=== PATIENT | male | born 1990 | race Caucasian/White ===

== ENCOUNTER 2019-08-17 18:57 | Emergency (ER) | payer BC ==
--- NOTE | 2019-08-17 19:19 | PDOC ---
Rapid Medical Evaluation Time Seen by Provider: 08/17/19 19:17 Medical Evaluation: 08/17/19 19:19 I have performed a brief in-person evaluation of this patient. The patient presents with a chief complaint of: exertional headache Pertinent physical exam findings:stable and in NAD, non-focal I have ordered the following:labs The patient will proceed to the ED for further evaluation.
[2019-08-17 19:21] VITALS: TEMP 98.4; BMI 38.9
--- NOTE | 2019-08-17 20:40 | PDOC ---
History of Present Illness - General Chief Complaint: Headache Stated Complaint: HEADCHE Time Seen by Provider: 08/17/19 19:17 - History of Present Illness Initial Comments: Mr. Adamson is a 29 y/o male with PMH significant for weather induced asthma, presenting with bitemporal headache for the past week. Reports he was doing push -ups when the headache started. Pain does not radiate anywhere else. Denies neck pain. Denies chest pain or shortness of breath. Denies dizziness, lightheadedness, or vertigo. Reports that he has tried Tylenol with no improvement. He has had previous headaches in the past, less severe, around once a month, which improve with Tylenol. No neck manipulation or chiropractor visits. SurgHx: right knee surgery Past History - Past Medical History Allergies/Adverse Reactions: Allergies Allergy/AdvReac Type Severity Reaction Status Date / Time Penicillins Allergy Mild Hives Verified 08/17/19 19:21 Home Medications: Ambulatory Orders Bupropion HCl [Wellbutrin Sr] 150 mg PO DAILY 08/17/19 Fluticasone/Salmeterol [Advair 250-50 Diskus] 1 each IH DAILY 08/17/19 COPD: No - Psycho Social/Smoking Cessation Hx Smoking History: Never smoked Have you smoked in the past 12 months: No Information on smoking cessation initiated: No Hx Alcohol Use: No Drug/Substance Use Hx: No Review of Systems - Review of Systems Comments:: GENERAL/CONSTITUTIONAL: No fever or chills. No weakness._ HEAD, EYES, EARS, NOSE AND THROAT: No change in vision. No change in hearing. No sore throat._ CARDIOVASCULAR: No chest pain or shortness of breath_ RESPIRATORY: Denies cough, hemoptysis_ GASTROINTESTINAL: No nausea, vomiting, diarrhea or constipation._ GENITOURINARY: No dysuria, frequency, or change in urination._ MUSCULOSKELETAL: No joint or muscle swelling or pain. No neck or back pain._ SKIN: No rash. NEUROLOGIC: Reports headache. No vertigo, loss of consciousness, or change in strength/sensation._ ENDOCRINE: No increased thirst. No abnormal weight change_ HEMATOLOGIC/LYMPHATIC: No anemia, easy bleeding, or history of blood clots._ ALLERGIC/IMMUNOLOGIC: No hives or skin allergy. *Physical Exam - Vital Signs Last Vital Signs Temp Pulse Resp BP Pulse Ox 98.4 F 71 17 142/93 100 08/17/19 19:19 08/17/19 19:19 08/17/19 19:19 08/17/19 19:19 08/17/19 19:19 - Physical Exam Comments: GENERAL: Awake, alert, and oriented to person/place/time, in no acute distress_ HEAD: No signs of trauma, normocephalic, atraumatic _ EYES: PERRLA, EOMI, sclera anicteric, conjunctiva clear_ ENT: Hearing grossly normal, nares patent, oropharynx clear without exudates. No uvular deviation. Moist mucosa_ NECK: Normal ROM, supple, no lymphadenopathy, JVD, or masses. No neck pain on rotation. No c-spine tenderness. No carotid bruit appreciated on ausculation. LUNGS: No distress, speaks in full sentences, clear to auscultation bilaterally _ HEART: Regular rate and rhythm, normal S1 and S2, no murmurs appreciated, peripheral pulses normal and equal bilaterally._ ABDOMEN: Soft, nontender, normoactive bowel sounds. No guarding, no rebound. No masses_ EXTREMITIES: Normal inspection, Normal range of motion, no edema. No clubbing or cyanosis_ NEUROLOGICAL: CN II-XII tested and intact. Sensation intact to sharp/dull differentiation in all extremities. Motor: Normal tone and bulk. No abnormal movements appreciated. No pronator drift. Strength tested and 5/5 in bilateral wrist flexion/extension, elbow flexion/extension, shoulder abduction, straight leg raise, knee flexion/ extension, ankle dorsiflexion/plantarflexion. Patient ambulates with a steady gait. Coordination: Finger to nose and heel to holloway testing intact bilaterally. SKIN: Warm, Dry, normal turgor, no rashes or lesions noted_ ED Treatment Course - LABORATORY CBC & Chemistry Diagram: 08/17/19 20:20 08/17/19 20:20 - RADIOLOGY Radiology Studies Ordered: Category Date Time Status HEAD CT WITHOUT CONTRAST [CT] Stat CT Scan 08/17/19 20:30 Ordered NECK CTA [CT] Stat CT Scan 08/17/19 20:30 Ordered Medical Decision Making - Medical Decision Making 08/17/19 20:50 29M presenting with bitemporal headache over the past 1 week. Reports no improvement with Tylenol. No focal findings on neuro exam. DDx includes r/o carotid vs vertebral artery dissection vs tension headache vs migraine headache. -cbc, cmp -CT head, CTA neck 08/17/19 21:53 Labs reviewed. Laboratory Tests 08/17/19 08/17/19 20:20 20:20 WBC 6.6 RBC 5.09 Hgb 14.8 Hct 42.8 MCV 84.0 MCH 29.1 MCHC 34.6 RDW 13.2 Plt Count 313 MPV 7.2 L Absolute Neuts (auto) 4.0 Neutrophils % 59.7 Lymphocytes % 30.7 Monocytes % 7.0 Eosinophils % 1.9 Basophils % 0.7 Nucleated RBC % 0 Sodium 139 Potassium 4.2 Chloride 107 Carbon Dioxide 29 Anion Gap 3 L BUN 15.1 Creatinine 0.9 Est GFR (CKD-EPI)AfAm 133.30 Est GFR (CKD-EPI)NonAf 115.01 Random Glucose 104 Calcium 9.7 Total Bilirubin 0.2 AST 26 ALT 35 Alkaline Phosphatase 67 Total Protein 7.0 Albumin 4.2 08/17/19 22:23 CT head shows no acute intracranial pathology. CTA neck shows evidence of carotid or vertebral artery dissection. 08/17/19 22:25 Pt reassessed. Reports continued headache. -fluids, reglan, benadryl 08/17/19 23:27 Pt reassessed. Reports headache has improved. Plan to d/c, f/u PCP as needed. All questions answered. Patient verbalized agreement and understanding with plan. Discharge - Discharge Information Problems reviewed: Yes Clinical Impression/Diagnosis: Headache Qualifiers: Headache type: unspecified Headache chronicity pattern: unspecified pattern Intractability: not intractable Qualified Code(s): R51 - Headache Condition: Stable Disposition: HOME - Follow up/Referral Referrals: Carlos Butterfield MD [Primary Care Provider] - - Patient Discharge Instructions Patient Printed Discharge Instructions: DI for Headache Additional Instructions: Please take Excedrin or other over the counter medications as needed for your headache. Please make a follow up appointment with your primary care doctor if your headache does not improve in 1 week. If you experience any new, worsening, or concerning symptoms, including severe headache, neck pain, dizziness, nausea, vomiting, changes in vision, loss of balance, lethargy, or any other concerns, please return to the emergency department. - Post Discharge Activity
[2019-08-17 20:51] LABS: BASO % 0.7 % (0-2.0); EOS % 1.9 % (0-4.5); HEMATOCRIT 42.8 % (35.4-49); HEMOGLOBIN 14.8 GM/dL (11.7-16.9); LYMPH % 30.7 % (8-40); MCH 29.1 pg (25.7-33.7); MCHC 34.6 g/dl (32.0-35.9); MEAN PLT VOLUME 7.2 fl (7.5-11.1); NEUT % 59.7 % (42.8-82.8); PLATELET COUNT 313 K/MM3 (134-434); RBC 5.09 M/mm3 (4.00-5.60); RDW 13.2 % (11.9-15.9); WHITE BLOOD COUNT 6.6 K/mm3 (4.0-10.0)
--- NOTE | 2019-08-17 20:53 | PDOC ---
Documentation entered by Elizabeth Escalante SCRIBE, acting as scribe for Jackie Gonzalez MD. Jackie Gonzalez MD: This documentation has been prepared by the Ava ellis Brenda, SCRIBE, under my direction and personally reviewed by me in its entirety. I confirm that the documentation accurately reflects all work, treatment, procedures, and medical decision making performed by me. Attending Attestation - Resident Resident Name: Fransisco Miles - ED Attending Attestation I have performed the following: I have examined & evaluated the patient, The case was reviewed & discussed with the resident, I agree w/resident's findings & plan, Exceptions are as noted - HPI HPI: 08/17/19 20:29 The patient is a 29 year old male, with a significant PMH of seasonal asthma who presents to the emergency department with a headache. Patient states that he had a sudden onset of a dull headache, that wraps around behind his head, starting on Saturday (08/12/19) while doing push-ups. He states that the pain lasted about 2 hours. Patient states that the pain has been constant and persistent since then. He notes that it got worse on Saturday (08/15/19), while carrying groceries. The patient denies chest pain, shortness of breath. Denies fever, chills, nausea , vomiting, diarrhea and constipation. Denies dysuria, frequency, urgency and hematuria. Allergies: NKA Social history: Denies history of smoking, alcohol use or illicit drug use. PCP: [facility] - Physicial Exam PE: 08/17/19 20:45 wnwd 29 o male p/w headache and neck pain since doing pushups last Saturday head ncat neck no midline cervical vertebral lungs cta b/l cvs [id number] abd nontender skin warm and dry extremities no edema neuro axox3,ambulating w ease,no ataxia 08/17/19 20:46 08/17/19 20:58 - Medical Decision Making 08/17/19 22:41 29-year-old male who developed a headache after doing push-ups last Saturday. At one point he was having some neck pain and was referred in by his primary care physician to rule out vertebral dissection Head CT is negative for any acute intracranial pathology Neck CTA is negative for any dissection He has no focal neuro deficits Labs were reviewed and they are essentially unremarkable Plan is to give him medications for his headache and reassess Impression migraines/tension headache
[2019-08-17 21:18] LABS: ALBUMIN 4.2 g/dl (3.4-5.0); BILIRUBIN,TOTAL 0.2 mg/dL (0.2-1); BLOOD UREA NITROGEN 15.1 mg/dL (7-18); CALCIUM 9.7 mg/dL (8.5-10.1); CREATININE 0.9 mg/dL (0.55-1.3); POTASSIUM 4.2 mmol/L (3.5-5.1)
[2019-08-17] MEDS ORDERED: METOCLOPRAMIDE HCL INJECTION 10 MG/2 ML VIAL IVPUSH ONE (22:26)
[2019-08-17] MEDS ORDERED: SODIUM CHLORIDE 0.9% 500 ML INFUS.BAG IV ONE (22:26)
[2019-08-17] MEDS ORDERED: METOCLOPRAMIDE HCL INJECTION 10 MG/2 ML VIAL ONE (22:30)
[2019-08-17] MEDS ORDERED: KETOROLAC TROMETHAMINE 30 MG/1 ML VIAL IVPUSH ONE (23:16)
[2019-08-17] MEDS ORDERED: KETOROLAC TROMETHAMINE 30 MG/1 ML VIAL ONE (23:31)
[2019-08-17 23:34] VITALS: BP 128/84; PULSE 70
== END 2019-08-17 23:35 | disposition home or self-care (01) ==
LOC: JER 18:57
PROC: 3E033GC Introduction of Other Therapeutic Substance into Peripheral Vein, Percutaneous Approach (ICD-10-PCS; principal; 2019-08-17)
PROC: 3E033GC Introduction of Other Therapeutic Substance into Peripheral Vein, Percutaneous Approach (ICD-10-PCS; 2019-08-17)
DX: G43.909 Migraine, unspecified, not intractable, without status migrainosus (principal); G44.209 Tension-type headache, unspecified, not intractable; Z88.0 Allergy status to penicillin; J45.998 Other asthma
CPT/HCPCS: 36415; 70450-TC; 70498-TC; 80053; 85025; 99282-25